=== PATIENT | female | born 1985 | race Caucasian/White ===

== ENCOUNTER 2018-09-28 12:21 | Inpatient (IN) | payer MEDICAID ==
[~2018-09-28] VITALS: Ht 160 cm; Wt 64.1 kg
[2018-09-28 12:37] VITALS: BP 134/88; PULSE 120; RESP 18
[2018-09-28 12:38] VITALS: Ht 160 cm; Wt 64.1 kg
--- NOTE | 2018-09-28 14:57 | PREAC ---
Date/Time of Note Date/Time of Note DATE: 09/28/18 TIME: 14:55 Anesthesia Eval and Record Evaluation Time Pre-Procedure Interview DATE: 09/28/18 TIME: 14:55 Age 32 Sex female NPO: 8 hrs Preoperative diagnosis IUP Planned procedure L&D Epidural Past Medical History Past Medical History: None Surgery & Anesthesia Issues No known issue Meds Anticoagulation: No Beta Harpal within 24 hr: No Reason Beta Harpal not given: Pt. not on B-Harpal Current Medications Lactated Ringer's 1,000 ml @ 125 mls/hr Q8H IV ; Start 09/28/18 at 14:37 Ampicillin 100 ml @ 100 mls/hr ONCE ONCE IV ; Start 09/28/18 at 15:00; Stop 09/28/18 at 15:59 Ampicillin 50 ml @ 100 mls/hr Q4H IV ; Start 09/28/18 at 19:00 Lidocaine (Xylocaine 1% (Mpf)) 30 ml ONCE PRN INJ .EPISIOTOMY; Start 09/28/18 at 15:00 Oxytocin/Lactated Ringer's 500 ml @ 500 mls/hr ONCE POST IV ; Start 09/28/18 at 15:00 Oxytocin/Lactated Ringer's 500 ml @ 125 mls/hr POST IV ; Start 09/28/18 at 15:00 Ibuprofen (Motrin) 600 mg ONCE PRN PO .PAIN 1-5; Start 09/28/18 at 15:00 Oxytocin/Lactated Ringer's 500 ml @ 0 mls/hr ONCE PRN IV .VAGINAL BLEEDING; Start 09/28/18 at 15:00 Methylergonovine Maleate (Methergine) 0.2 mg ONCE PRN IM .VAGINAL BLEEDING; Start 09/28/18 at 15:00 Carboprost Tromethamine (Hemabate) 250 mcg ONCE PRN IM .VAGINAL BLEEDING; Start 09/28/18 at 15:00 Misoprostol (Cytotec) 1,000 mcg ONCE PRN GA .VAGINAL BLEEDING; Start 09/28/18 at 15:00 Meds reviewed: Yes Allergies Coded Allergies: morphine (Verified Allergy, Intermediate, itching, 09/28/18) Allergies Reviewed: Yes Labs/Studies Labs Reviewed: Reviewed by anesthesiologist Result Diagram: 09/28/18 1334 09/28/18 1334 Laboratory Tests 09/28/18 13:34 test: Positive Studies: ECG Pre-procedure Exam Last vitals Vital Signs Date Temp Pulse Resp B/P (MAP) Pulse Ox O2 O2 Flow FiO2 Time Delivery Rate 09/28/18 98.6 120 18 134/88 Room Air 12:37 (103) Airway: Adequate mouth opening, Adequate thyromental dist Mallampati: Mallampati II Teeth: Normal Lung: Normal Heart: Normal ASA Physical Status ASA physical status: 2 Emergency: None Planned Anesthetic Neuraxial: Epidural Planned Pain Management Epidural Pre-operative Attestations Prior to commencing anesthesia and surgery, the patient was re-evaluated, there was verification of: *The patient's identity *The results of appropriate recent lab work and preoperative vital signs *The above evaluation not changing prior to induction *Anesthetic plan, risk benefits, alternative and complications discussed with patient/family; questions answered; patient/family understands, accepts and wishes to proceed. MICAH CRESPO MD Sep 28, 2018 14:56
[2018-09-28] MEDS ORDERED: OXYTOCIN 30 UNITS/LR 500 ML IV SCH ×3 (15:00→17:00)
[2018-09-28] MEDS ORDERED: ONDANSETRON 4 MG INJ IV PRN (15:00)
[2018-09-28] MEDS ORDERED: OXYTOCIN 30 UNITS/LR 500 ML IV PRN (15:00)
[2018-09-28] MEDS ORDERED: METHYLERGONOVINE 0.2 MG INJ IM PRN (15:00)
[2018-09-28] MEDS ORDERED: IBUPROFEN 600 MG TAB PO PRN (15:00)
[2018-09-28] MEDS ORDERED: MISOPROSTOL 200 MCG TAB PR PRN (15:00)
[2018-09-28] MEDS ORDERED: LIDOCAINE 1% (MPF) 30 ML INJ INJ PRN (15:00)
[2018-09-28] MEDS ORDERED: FENTAnyl 2MCG/ML-ROPIV 0.2% 100 ML ONE (15:00)
[2018-09-28] MEDS ORDERED: CARBOPROST 250 MCG INJ IM PRN (15:00)
[2018-09-28] MEDS ORDERED: DIPHENHYDRAMINE 50 MG INJ IV PRN (15:00)
[2018-09-28] MEDS ORDERED: AMPICILLIN 2 GM/NS (PMX) 100 ML IV ONE (15:00)
[2018-09-28] MEDS ORDERED: NALOXONE (0.4 MG/ML) INJ IV PRN (15:00)
[2018-09-28] MEDS: LACTATED RINGER'S 1,000 ML IV SCH ×2 (15:49→15:50)
--- NOTE | 2018-09-28 19:36 | HP ---
Date/Time of Note Date/Time of Note DATE: 09/28/18 TIME: 19:31 OB - History Hx of Present Free Text/Dictation 32 years old 11 para 00 10 0 with single intrauterine at 37 weeks and 4 days complaining of uterine contractions and possible leakage of fluid. She states good movement. She denies nausea, vomiting, shortness of breath, chest pain, headache, visual changes, vaginal bleeding. Chief Complaint: Uterine contractions, possible leakage of fluids. Estimated Due Date: Oct 15, 2018 : 11 Para: 0 Spontaneous : 8 Therapeutic : 2 Care: Good Care Ultrasounds: Normal mid trimester US Obstetrical Complications: None Medical Complications: None Past Family/Social History * Past Medical, Surgical, Family and Obstetric Histories reviewed from chart. OB Admission Exam Vital Signs Vital Signs Vital Signs Date Temp Pulse Resp B/P (MAP) Pulse Ox O2 O2 Flow FiO2 Time Delivery Rate 09/28/18 98.6 120 18 134/88 Room Air 12:37 (103) Physical Exam HEENT: WNL Heart: Rhythm Normal Lungs: Clear Abdomen: WNL Extremities: Normal Cervical Dilatation: 3cm Effacement: 75% Station: -3 Membranes: Ruptured Amniotic Fluid: Clear Heart Rate: 130's Accelerations: Accelerations Present Decelerations: No Decelerations Varibility: Moderate Contractions on Admission: 6-10 Minutes Apart Intensity: Mild Last 72 hours Lab Results CBC & BMP 09/28/18 13:34 Liver Function Test 09/28/18 13:34 Alanine Aminotransferase (ALT/SGPT) 22 Albumin 3.1 L Alkaline Phosphatase 235 H Aspartate Amino Transf (AST/SGOT) 27 Direct Bilirubin 0.00 Total Protein 7.2 OB Assessment/Plan Other plan: 32 years old 11 para 00 10 0 with single intrauterine at 37 weeks and 4 days with spontaneous rupture of membrane in labor - FHR: No sign of metabolic acidosis- Category I - Continuous EFM, toco - CBC, blood type and screen - Analgesia options with R/B/A discussed in detail with patient - Epidural per patient request - Please see the orders - Obtain record 2) Left ext edema: She states that had the edema in the last few days. Lower extremity Doppler ordered 3) history of marijuana use, urine drug screen performed which is positive for marijuana and amphetamine. pony worker consult will be placed after delivery HADYOCASTA ALVARADO Sep 28, 2018 19:36
[2018-09-28] MEDS: AMPICILLIN 1 GM/NS (PMX) 50 ML IV SCH ×2 (19:58→23:46)
[2018-09-28] MEDS: FENTAnyl 2MCG/ML-ROPIV 0.2% 100 ML BAG EPI SCH (22:25)
--- NOTE | 2018-09-29 03:01 | QN ---
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 Reported has asymmetric swelling of lower extremity more than the left and right, attended to the patient bedside. Patient reports had bilateral lower extremity swelling for the past 3 years which has been more recently in the last 2 weeks in the left side than right side. She denied having any pain in the left lower extremity. She also denied having any trouble with gait. Denies any history of blood clotting disorders or family history of blood clotting disorder. Doppler study of lower extremity completed and was negative for DVT. Currently patient has epidural at the time of my examination. Extremities. Asymetric edema , more in the left side than the right side. 2 + pitting edema in the left side and 1 + in the RT side No cord palpable Difficult to assess calf tenderness since the patient has currently regional anesthesia Good pulses in both lower extremities Discussed this case with Hospitalist vision rehabilitation therapist. Dr. Rios, who only recommended prophylactic Heparin, Per Dr. Rios since the Doppler is negative no more work up necessary at this time Will start 5000 units heparin Sub Q BID Continue management of labor FHT: cat 1 Plan of care discussed with the patient and nursing staff MARLO NESS MD Sep 29, 2018 03:01
[2018-09-29] MEDS: AMPICILLIN 1 GM/NS (PMX) 50 ML IV SCH (04:08)
[2018-09-29] MEDS: FENTAnyl 2MCG/ML-ROPIV 0.2% 100 ML BAG EPI SCH (04:25)
--- NOTE | 2018-09-29 08:33 | LDN ---
Date/Time of Note Date/Time of Note DATE: 09/29/18 TIME: 08:30 Delivery Summary September 29, 2018 Weeks of Gestation 37+ weeks Placenta Delivered: Spontaneously Meconium: none Episiotomy: No Indication for episiotomy N/A Perineal laceration: 2 Laceration repair: Second-degree vaginal perineal laceration noted. Repaired using 3-0 and 2-0 chromic. Hemostasis complete. Fundus was firm. Enlarged engorged external hemorrhoids noted. Anesthesia type: Epidural Estimated blood loss: 100 Sponge & Needle done & correct: Yes All needle counts correct: Yes Any foreign bodies felt in the: No Infant Delivery Information Sex Infant Sex: male Apgars 1 Minute: 8 5 Minute: 9 Suctioning Nose & mouth suctioned at polo: Yes Delee suction performed: Yes Umbilical Cord Umbilical cord with: 3 Vessels Cord presentations: no nuchal cord Cord Blood was obtained: Yes Mother & Baby Disposition Disposition Patient with insufficient care. Had only 3 visits. Urine toxicology positive for methamphetamine and marijuana. 4 inch of cord obtained and was sent for drug screen assessment for the Second-degree perineal vaginal laceration repaired. Hemostasis was complete. Fundus was firm at the end of the delivery. Placenta was sent to pathology. No complication. MARLO NESS MD Sep 29, 2018 08:33
[2018-09-29] MEDS ORDERED: OXYTOCIN 30 UNITS/LR 500 ML IV SCH (08:34)
[2018-09-29] MEDS ORDERED: NACL 0.9% 3 ML SYG IV SCH (09:00)
[2018-09-29] MEDS ORDERED: MISOPROSTOL 200 MCG TAB PR PRN (09:00)
[2018-09-29] MEDS ORDERED: HEPARIN 5,000 UNIT/1 ML VIAL SC SCH (09:00)
[2018-09-29] MEDS ORDERED: OXYTOCIN 30 UNITS/LR 500 ML IV PRN (09:00)
[2018-09-29] MEDS ORDERED: METHYLERGONOVINE 0.2 MG INJ IM PRN (09:00)
[2018-09-29] MEDS ORDERED: DIPHENHYDRAMINE 25 MG CAP PO PRN (09:00)
[2018-09-29] MEDS ORDERED: WITCH HAZEL/GLYCERIN PAD PR PRN (09:00)
[2018-09-29] MEDS ORDERED: ONDANSETRON 4 MG INJ IV PRN (09:00)
[2018-09-29] MEDS ORDERED: ZOLPIDEM 5 MG TAB PO PRN (09:00)
[2018-09-29] MEDS ORDERED: CARBOPROST 250 MCG INJ IM PRN (09:00)
[2018-09-29] MEDS ORDERED: METHYLERGONOVINE 0.2 MG TAB PO PRN (09:00)
[2018-09-29 12:44] VITALS: BP 110/68; PULSE 77; RESP 20
[2018-09-29] MEDS ORDERED: SILVER SULFADIAZINE 1% 25 GM CR TOP ONE (13:30)
[2018-09-29] MEDS: SENNA/DOCUSATE NA (8.6MG/50MG) TAB PO SCH ×2 (15:00→21:04)
[2018-09-29] MEDS: IBUPROFEN 600 MG TAB PO SCH ×4 (15:01→23:59)
[2018-09-29 15:20] VITALS: BP 118/71; PULSE 95; RESP 18
[2018-09-29] MEDS ORDERED: BENZOCAINE 20% 56 ML SPRAY TOP PRN (15:30)
[2018-09-29] MEDS ORDERED: DIBUCAINE 1% 30 GM OINT TOP PRN (15:30)
[2018-09-29 15:52] VITALS: BP 114/68
[2018-09-29 20:00] VITALS: BP 116/75; PULSE 87; RESP 18
[2018-09-29] MEDS: SILVER SULFADIAZINE 1% 25 GM CR TOP SCH (21:05)
[2018-09-30] VITALS: BP 114/62; PULSE 98; RESP 18
[2018-09-30 04:00] VITALS: BP 124/75; PULSE 74; RESP 16
[2018-09-30] MEDS: IBUPROFEN 600 MG TAB PO SCH ×4 (05:51→23:51)
[2018-09-30 08:00] VITALS: BP 124/75; RESP 18
[2018-09-30] MEDS: SENNA/DOCUSATE NA (8.6MG/50MG) TAB PO SCH ×2 (10:49→22:30)
[2018-09-30] MEDS: SILVER SULFADIAZINE 1% 25 GM CR TOP SCH ×3 (10:49→22:30)
--- NOTE | 2018-09-30 11:41 | QN ---
Documentation Comment no c/o RPR titer 1:64 fundus firm ext edematous lochia min HnH 7.5/24.5 A s/p 1 anemia reactive RPR high titer P FTA-ABS ferrous gluconate ERIC BOND MD Sep 30, 2018 11:41
--- NOTE | 2018-09-30 13:03 | PAC ---
Date/Time of Note Date/Time of Note DATE: 09/30/18 TIME: 13:03 Post-Anesthesia Notes Post-Anesthesia Note Last documented vital signs Vital Signs Date Temp Pulse Resp B/P (MAP) Pulse Ox O2 O2 Flow FiO2 Time Delivery Rate 09/30/18 98.0 18 124/75 Room Air 08:00 (91) 09/30/18 74 04:00 Activity: WNL Respiratory function: WNL Cardiovascular function: WNL Mental status: Baseline Pain reasonably controlled: Yes Hydration appropriate: Yes Nausea/Vomiting absent: Yes Comments BP:115/56, P:78, Spo2:100%, T:98,8 MICAH CRESPO MD Sep 30, 2018 13:03
[2018-09-30 15:47] VITALS: BP 123/74; PULSE 91; RESP 20
[2018-09-30 20:00] VITALS: BP 130/81; PULSE 91; RESP 18
[2018-09-30] MEDS: FERROUS GLUCONATE (EC) 325 MG TAB PO SCH (22:30)
[2018-10-01 04:01] VITALS: BP 127/72; PULSE 81; RESP 18
[2018-10-01] MEDS: IBUPROFEN 600 MG TAB PO SCH ×2 (05:35→11:24)
[2018-10-01 07:50] VITALS: BP 122/68; PULSE 92; RESP 18
[2018-10-01] MEDS ORDERED: MEASLES,MUMPS,RUBELLA VACCINE INJ SC* ONE (09:00)
[2018-10-01] MEDS ORDERED: DIPHTH/TET/ACEL PERTUSS (ADULT) 0.5 ML VIAL IM* ONE (09:00)
[2018-10-01] MEDS ORDERED: VARICELLA VACCINE LIVE/PF 1,350 UNIT/0.5 ML ML SC* ONE (09:00)
[2018-10-01] MEDS: FERROUS GLUCONATE (EC) 325 MG TAB PO SCH (09:23)
[2018-10-01] MEDS: SENNA/DOCUSATE NA (8.6MG/50MG) TAB PO SCH (09:23)
[2018-10-01] MEDS: SILVER SULFADIAZINE 1% 25 GM CR TOP SCH (09:24)
--- NOTE | 2018-10-01 10:41 | QN ---
Documentation Comment day #2 Patient is stable and afebrile Vital signs stable VS - Last 72 Hours, by Label Date Temp Pulse Resp B/P (MAP) Pulse Ox O2 O2 Flow FiO2 Time Delivery Rate 10/01/18 97.7 92 18 122/68 Room Air 07:50 (86) 10/01/18 98.0 81 18 127/72 Room Air 04:01 (90) 09/30/18 98.0 91 18 130/81 Room Air 20:00 (97) 09/30/18 97.8 91 20 123/74 Room Air 15:47 (90) 09/30/18 98.0 18 124/75 Room Air 08:00 (91) 09/30/18 97.7 74 16 124/75 Room Air 04:00 (91) 09/30/18 97.7 98 18 114/62 00:00 (79) 09/29/18 98.0 87 18 116/75 Room Air 20:00 (89) 09/29/18 97.9 114/68 Room Air 15:52 (83) 09/29/18 98.0 95 18 118/71 Room Air 15:20 (87) 09/29/18 98.8 77 20 110/68 Room Air 12:44 (82) 09/28/18 98.6 120 18 134/88 Room Air 12:37 (103) Hematology - 72 Hrs Test 09/28/18 13:34 09/29/18 09:29 09/30/18 06:47 Hematocrit 29.2 % (37.0-47.0) 25.4 % (37.0-47.0) 23.6 % (37.0-47.0) L L L Hemoglobin 9.3 8.2 7.5 g/dl (12.0-16.0) L g/dl (12.0-16.0) g/dl (12.0-16.0) L L Mean Corpuscular 26.9 pg (29.0-33.0) 27.5 Hemoglobin L pg (29.0-33.0) L Mean Corpuscular 31.8 31.8 Hemoglobin Concent g/dl (32.0-37.0) L g/dl (32.0-37.0) L Mean Corpuscular 84.4 86.4 Volume fl (82.0-101.0) fl (82.0-101.0) Mean Platelet 10.2 fl (7.4-10.4) 10.9 fl (7.4-10.4) Volume H Platelet Count 398 376 10^3/UL (140-415) 10^3/UL (140-415) Red Blood Count 3.46 2.73 10^6/ul (4.20-5.40) 10^6/ul (4.20-5.40 L ) #L Red Cell 13.8 % (11.5-14.5) 14.4 % (11.5-14.5) Distribution Width White Blood Count 10.1 11.1 10^3/ul (4.8-10.8) 10^3/ul (4.8-10.8) H Chemistry Test 09/28/18 13:34 Sodium Level 133 mmol/L (135-144) L Potassium Level 3.8 mmol/L (3.5-5.1) Chloride Level 104 mmol/L (97-110) Carbon Dioxide Level 21 mmol/L (21-31) Anion Gap 8 (5-13) Blood Urea Nitrogen 8 mg/dl (7-20) Creatinine 0.49 mg/dl (0.44-1.00) Est Glomerular Filtrat Rate mL/min > 60 mL/min (>60) Glucose Level 84 mg/dl (70-220) Calcium Level 9.0 mg/dl (8.4-10.2) Total Bilirubin 0.1 mg/dl (0.2-1.3) L Direct Bilirubin 0.00 mg/dl (0.00-0.20) Indirect Bilirubin 0.1 mg/dl (0-1.1) Aspartate Amino Transf (AST/SGOT) 27 IU/L (15-46) Alanine Aminotransferase (ALT/SGPT) 22 IU/L (13-69) Alkaline Phosphatase 235 IU/L (42-121) H Total Protein 7.2 g/dl (6.1-8.1) Albumin 3.1 g/dl (3.3-4.9) L Globulin 4.10 g/dl (1.3-3.2) H Albumin/Globulin Ratio 0.75 Abdomen soft, fundus firm Perineum intact Extremities nontender Assessment and plan Patient stable and doing well Instructed to continue with vitamins and iron Discharge home today Follow-up with clinic in 2 and 6 weeks SHAJI STROUD MD Oct 01, 2018 10:41
--- NOTE | 2018-10-01 10:43 | DS ---
Date/Time of Note Date/Time of Note DATE: 10/01/18 TIME: 10:42 Obstetrical Discharge Record Final Diagnosis Final Diagnosis: Term delivered Vaginal Delivery Obstetrical Delivery: Spontaneous Condition on Discharge Physical Assessment Last Vitals: VS - Last 72 Hours, by Label Date Temp Pulse Resp B/P (MAP) Pulse Ox O2 O2 Flow FiO2 Time Delivery Rate 10/01/18 97.7 92 18 122/68 Room Air 07:50 (86) 10/01/18 98.0 81 18 127/72 Room Air 04:01 (90) 09/30/18 98.0 91 18 130/81 Room Air 20:00 (97) 09/30/18 97.8 91 20 123/74 Room Air 15:47 (90) 09/30/18 98.0 18 124/75 Room Air 08:00 (91) 09/30/18 97.7 74 16 124/75 Room Air 04:00 (91) 09/30/18 97.7 98 18 114/62 00:00 (79) 09/29/18 98.0 87 18 116/75 Room Air 20:00 (89) 09/29/18 97.9 114/68 Room Air 15:52 (83) 09/29/18 98.0 95 18 118/71 Room Air 15:20 (87) 09/29/18 98.8 77 20 110/68 Room Air 12:44 (82) 09/28/18 98.6 120 18 134/88 Room Air 12:37 (103) Voiding: Yes Bowel Movement: Yes Breast: Soft, non-tender Fundus: Firm Calf Tenderness: No Patient Condition: Good SHAJI STROUD MD Oct 01, 2018 10:43
[2018-10-01] MEDS ORDERED: PENICILLIN G BENZ 2.4 MIL UNIT SYG IM ONE (13:30)
[2018-10-01 15:47] VITALS: BP 130/80; PULSE 99; RESP 18
== END 2018-10-01 17:10 | disposition home or self-care (01) | DRG 807 ==
LOC: L-D 12:21 → OBT 12:21 → L-D 13:48 → OBT 13:51 → L-D 16:26 → PP1 09-29 14:45
PROVIDERS: ADMIT Obstetrics & Gynecology; ATTEND Obstetrics & Gynecology
PROC: 10E0XZZ Delivery of Products of Conception, External Approach (ICD-10-PCS; principal; 2018-09-29)
PROC: 0KQM0ZZ Repair Perineum Muscle, Open Approach (ICD-10-PCS; 2018-09-29)
DX: O12.04 Gestational edema, complicating childbirth (principal); Z37.0 Single live birth; O99.324 Drug use complicating childbirth; F15.90 Other stimulant use, unspecified, uncomplicated; F12.90 Cannabis use, unspecified, uncomplicated; O87.2 Hemorrhoids in the puerperium; O70.1 Second degree perineal laceration during delivery; O90.81 Anemia of the puerperium; D64.9 Anemia, unspecified; Z3A.37 37 weeks gestation of pregnancy
CPT/HCPCS: 62319; 76815; 76818; 80053; 80307; 81001; 85014; 85018; 85025; 85610; 85730; 86592; 86703; 86762; 86850; 86900; 86901; 87086; 87285; 87340; 88307; 90686; 90716; 93970; 99464; G0463; J0290; J0561; J1200; J1644; J2590; J3010; J7120